=== PATIENT | female | born 1940 | race Caucasian/White ===

== ENCOUNTER → 2018-06-19 | Day surgery (SDC) | payer MEDICARE, OTHER ==
[~2018-06-19] MED LIST: Dextrose 5%-0.45% NaCl 1,000 ML IV SCH; Midazolam 1 MG/ML 2 ML SDV IV ONE; Midazolam 1 MG/ML 2 ML SDV ONE; Sodium Chloride 0.9% 250 ML IV SCH; fentaNYL 100 MCG/2 ML SDV IV ONE; fentaNYL 100 MCG/2 ML SDV ONE
[2018-06-19 13:33] VITALS: BP 122/62
--- NOTE | 2018-06-19 14:12 | OR ---
DATE: 06/19/2018 PREOPERATIVE DIAGNOSIS: Screening colonoscopy. POSTOPERATIVE DIAGNOSIS: Screening colonoscopy. PROCEDURE: Attempted colonoscopy. ANESTHESIA: Conscious sedation. SPECIMEN: None. INDICATION FOR PROCEDURE: This 78-year-old female is here for screening colonoscopy. OPERATIVE FINDINGS: I could not manipulate the scope through a fixed and tortuous sigmoid colon. I even changed scopes to a smaller pediatric version, and with enough sedation and manipulation, I still could not get past the sigmoid. It was felt getting dangerous, and I aborted the procedure. RECOMMENDATION: This patient is 78 and really does not have much of a cancer history. It depends on how strong you feel this needs to be screened, but the second option would be an air-contrast barium enema. PROCEDURE IN DETAIL: After adequate preparation, a colonoscope was inserted into the rectum. This was passed up into the lower part of the sigmoid. I could advance the scope through most of the sigmoid; however, I could easily see where a point of sigmoid was fixated into the pelvis, and this is probably secondary to adhesions from her hysterectomy. I positioned the patient in different ways and still was not able to advance the scope. I put the patient back in lateral position and changed to a smaller pediatric scope. I still ran across the same difficulty. The colon would not straighten out, and I could not get pass a fixed point in the colon. The patient was getting uncomfortable. I felt this was getting dangerous and aborted the case. [facility] /[id number]
== END ==
LOC: DL.ENDO 10:00
PROVIDERS: ATTEND Surgery
DX: Z12.11 Encounter for screening for malignant neoplasm of colon (principal); K63.89 Other specified diseases of intestine; E11.9 Type 2 diabetes mellitus without complications; Z79.899 Other long term (current) drug therapy; Z98.890 Other specified postprocedural states; Z88.8 Allergy status to other drugs, medicaments and biological substances
CPT/HCPCS: G0104; J2250; J3010; J7042; J7050

== ENCOUNTER 2022-07-04 12:50 | Emergency (ER) | payer MEDICARE, OTHER ==
[2022-07-04 13:07] VITALS: BP 188/68; PULSE 84
[2022-07-04 14:18] LABS: CORONAVIRUS COVID-19 NAA NEGATIVE (NEGATIVE); RESPIRATORY SYNCYTIAL VIR NAA NEGATIVE (NEGATIVE)
== END 2022-07-04 14:17 | disposition home or self-care (01) ==
LOC: DL.ED 12:50
DX: J15.7 Pneumonia due to Mycoplasma pneumoniae (principal); I10 Essential (primary) hypertension; K21.9 Gastro-esophageal reflux disease without esophagitis; E11.9 Type 2 diabetes mellitus without complications; Z88.8 Allergy status to other drugs, medicaments and biological substances; Z79.899 Other long term (current) drug therapy; Z20.822 Contact with and (suspected) exposure to COVID-19
CPT/HCPCS: 0241U; 71045; 99283; 99285

== ENCOUNTER 2024-06-30 16:42 | Inpatient (IN) | payer MEDICARE, OTHER ==
[2024-06-30] MEDS ORDERED: Sodium Chloride 0.9% 10 ML Syringe FLUSH PRN (16:51)
[2024-06-30 17:11] LABS: BASOPHILS PERCENT AUTO 0.1 % (0.0-1.0); EOSINOPHILS PERCENT AUTO 0.7 % (1.0-3.0); HEMATOCRIT 36.1 % (37.0-47.0); HEMOGLOBIN 11.8 g/dL (12.0-16.0); MEAN CORPUSCULAR HEMOGLOBIN 33.1 pg (27.0-34.0); MEAN CORPUSCULAR HGB CONC 32.7 g/dL (33.0-35.0); MEAN CORPUSCULAR VOLUME 101.1 fL (80-100); MONOCYTES PERCENT AUTO 12.7 % (2-8); NEUTROPHILS PERCENT AUTO 67.5 % (42.2-75.2); PLATELET COUNT,PLT 193 10^3/uL (150-450); RED BLOOD CELL COUNT 3.57 10^6/uL (4.2-5.4)
[2024-06-30] MEDS: Digoxin 500 MCG/2 ML Amp IVPUSH ONE (17:12)
[2024-06-30 17:39] LABS: ALBUMIN 3.2 g/dL (3.4-5.0); ANION GAP 14.6 mEq/L (7-13); BILIRUBIN TOTAL 1.6 mg/dL (0.2-1.0); BUN/CREATININE RATIO 18.2 (No establ ref range); C-REACTIVE PROTEIN 24.27 ng/dL (<=0.50); CALCIUM 9.3 mg/dL (8.5-10.1); CREATININE 1.81 mg/dL (0.55-1.02); EST CRCL DRUG DOSING (CG) 16.92 mL/min; MAGNESIUM 1.6 mg/dL (1.8-2.4); POTASSIUM,K 4.6 mmol/L (3.5-5.1); PROTEIN TOTAL,TP 7.8 g/dL (6.4-8.2)
[2024-06-30 17:44] LABS: A/G RATIO 0.7
[2024-06-30 17:46] LABS: LACTIC ACID 2.4 mmol/L (0.4-2.0)
[2024-06-30] MEDS: Magnesium Sulfate/Water Premix 2 GM in Premix Bag 1 BAG IV ONE (18:00)
[2024-06-30] MEDS: Sodium Chloride 0.9% 500 ML IV SCH (18:01)
[2024-06-30 18:05] LABS: APPEARANCE,URINE CLEAR (CLEAR); BILIRUBIN,URINE NEGATIVE (NEGATIVE); COLOR,URINE YELLOW (YELLOW); GLUCOSE,URINE NEGATIVE (NEGATIVE); KETONES,URINE NEGATIVE (NEGATIVE); LEUKOCYTE ESTERASE,URINE MODERATE (NEGATIVE); NITRITE,URINE POSITIVE (NEGATIVE); OCCULT BLOOD,URINE TRACE-INTACT (NEGATIVE); PH,URINE 5.5 (5.0-9.0); PROTEIN,URINE 30 (NEGATIVE)
[2024-06-30 18:16] LABS: AMORPHOUS SEDIMENT,URINE FEW /HPF (NOT SEEN); BACTERIA,URINE MANY /HPF (0-FEW/HPF); EPITHELIAL CELLS,URINE FEW /HPF (NOT SEEN); MUCUS,URINE FEW /LPF (NOT SEEN); RBC,URINE 0-5 /HPF (0-5); WBC,URINE 20-30 /HPF (0-5/HPF)
[2024-06-30] MEDS: cefTRIAXone 2 GM Vial IVPUSH ONE (18:23)
[2024-06-30] MEDS: Acetaminophen 500 MG Tab PO ONE (18:40)
[2024-06-30] MEDS ORDERED: Albuterol/Ipratropium 3.0-0.5 MG/3 ML Neb Soln NEB PRN (20:43)
[2024-06-30] MEDS ORDERED: Bisacodyl 5 MG Tab PO PRN (20:43)
[2024-06-30] MEDS ORDERED: Acetaminophen 325 MG Tab PO PRN (20:43)
[2024-06-30] MEDS ORDERED: DULoxetine 30 MG Cap PO SCH (21:00)
[2024-06-30] MEDS: Apixaban 5 MG Tab PO SCH (21:58)
[2024-06-30] MEDS: DULoxetine 30 MG Cap PO SCH (21:58)
[2024-06-30] MEDS: Docusate Sodium 100 MG Cap PO PRN (21:59)
[2024-06-30] MEDS: Melatonin 3 MG Tab PO PRN (21:59)
[2024-06-30] MEDS: Metoprolol Succinate 50 MG Tab.ER PO SCH (22:00)
[2024-06-30] MEDS: Sodium Chloride 0.9% 1,000 ML IV SCH (22:01)
[2024-07-01] MEDS: Levothyroxine 25 MCG Tab PO SCH (06:06)
[2024-07-01] MEDS: Ondansetron 4 MG/2 ML SDV IVPUSH PRN (06:35)
[2024-07-01 06:49] LABS: BASOPHILS PERCENT AUTO 0.1 % (0.0-1.0); EOSINOPHILS PERCENT AUTO 0.9 % (1.0-3.0); HEMATOCRIT 35.6 % (37.0-47.0); HEMOGLOBIN 11.4 g/dL (12.0-16.0); LYMPHOCYTES PERCENT AUTO 5.5 % (20.5-50.1); MEAN CORPUSCULAR HEMOGLOBIN 32.3 pg (27.0-34.0); MEAN CORPUSCULAR VOLUME 100.8 fL (80-100); MONOCYTES PERCENT AUTO 9.4 % (2-8); NEUTROPHILS PERCENT AUTO 84.1 % (42.2-75.2); PLATELET COUNT,PLT 185 10^3/uL (150-450); RED BLOOD CELL COUNT 3.53 10^6/uL (4.2-5.4); WHITE BLOOD CELL COUNT,WBC 11.4 10^3/uL (5.0-10.0)
[2024-07-01] MEDS: Digoxin 500 MCG/2 ML Amp IVPUSH ONE (07:10)
[2024-07-01 07:18] LABS: ANION GAP 15.1 mEq/L (7-13); C-REACTIVE PROTEIN 22.94 ng/dL (<=0.50); CALCIUM 9.2 mg/dL (8.5-10.1); CREATININE 1.85 mg/dL (0.55-1.02); EST CRCL DRUG DOSING (CG) 18.22 mL/min; POTASSIUM,K 5.1 mmol/L (3.5-5.1)
[2024-07-01] MEDS ORDERED: Spironolactone 25 MG Tab PO SCH (09:00)
[2024-07-01] MEDS: Digoxin 125 MCG Tab PO SCH (09:09)
[2024-07-01] MEDS: glipiZIDE 5 MG Tab PO SCH (09:37)
[2024-07-01 09:38] LABS: LACTIC ACID 1.2 mmol/L (0.4-2.0)
[2024-07-01] MEDS: atorvaSTATin 20 MG Tab PO SCH (09:39)
[2024-07-01] MEDS: Gabapentin 300 MG Cap PO SCH (15:50)
[2024-07-01] MEDS: cefTRIAXone 1 GM Vial IVPUSH SCH (20:02)
[2024-07-02 06:55] LABS: BASOPHILS PERCENT AUTO 0.1 % (0.0-1.0); EOSINOPHILS PERCENT AUTO 3.3 % (1.0-3.0); HEMATOCRIT 32.2 % (37.0-47.0); HEMOGLOBIN 10.5 g/dL (12.0-16.0); LYMPHOCYTES PERCENT AUTO 12.4 % (20.5-50.1); MEAN CORPUSCULAR HEMOGLOBIN 32.9 pg (27.0-34.0); MEAN CORPUSCULAR HGB CONC 32.6 g/dL (33.0-35.0); MEAN CORPUSCULAR VOLUME 100.9 fL (80-100); MONOCYTES PERCENT AUTO 12.8 % (2-8); NEUTROPHILS PERCENT AUTO 71.4 % (42.2-75.2); PLATELET COUNT,PLT 159 10^3/uL (150-450); RED BLOOD CELL COUNT 3.19 10^6/uL (4.2-5.4); WHITE BLOOD CELL COUNT,WBC 6.7 10^3/uL (5.0-10.0)
[2024-07-02 07:07] LABS: ANION GAP 12.4 mEq/L (7-13); C-REACTIVE PROTEIN 19.07 ng/dL (<=0.50); CALCIUM 9.1 mg/dL (8.5-10.1); CREATININE 1.47 mg/dL (0.55-1.02); EST CRCL DRUG DOSING (CG) 22.93 mL/min; POTASSIUM,K 4.4 mmol/L (3.5-5.1)
[2024-07-02 07:43] VITALS: BP 120/62; PULSE 60
[2024-07-02] MEDS: Allopurinol 100 MG Tab PO SCH (09:20)
== END 2024-07-02 12:58 | disposition home or self-care (01) | DRG 690 ==
LOC: DL.ED 16:42 → DL.MS 18:29
PROVIDERS: ADMIT Internal Medicine; ATTEND Internal Medicine
DX: N39.0 Urinary tract infection, site not specified (principal); I13.0 Hypertensive heart and chronic kidney disease with heart failure and stage 1 through stage 4 chronic kidney disease, or unspecified chronic kidney disease; I50.42 Chronic combined systolic (congestive) and diastolic (congestive) heart failure; N17.9 Acute kidney failure, unspecified; E86.1 Hypovolemia; I48.91 Unspecified atrial fibrillation; N18.30 Chronic kidney disease, stage 3 unspecified; E11.22 Type 2 diabetes mellitus with diabetic chronic kidney disease; F15.90 Other stimulant use, unspecified, uncomplicated; K21.9 Gastro-esophageal reflux disease without esophagitis; I08.1 Rheumatic disorders of both mitral and tricuspid valves; E86.0 Dehydration; T50.2X5A Adverse effect of carbonic-anhydrase inhibitors, benzothiadiazides and other diuretics, initial encounter; R63.4 Abnormal weight loss; Z68.28 Body mass index [BMI] 28.0-28.9, adult; Z86.73 Personal history of transient ischemic attack (TIA), and cerebral infarction without residual deficits; Z88.8 Allergy status to other drugs, medicaments and biological substances; Z79.1 Long term (current) use of non-steroidal anti-inflammatories (NSAID); Z79.51 Long term (current) use of inhaled steroids; Z79.899 Other long term (current) drug therapy; Z79.02 Long term (current) use of antithrombotics/antiplatelets; Z87.81 Personal history of (healed) traumatic fracture; Z98.890 Other specified postprocedural states; Z90.49 Acquired absence of other specified parts of digestive tract
CPT/HCPCS: 36415; 71045; 80048; 80053; 80162; 81001; 82947; 83605; 83735; 83880; 84484; 85025; 86140; 87040; 87086; 87428-QW; 93005; 93010; 96365; 96375; 97161-GP; 97165-GO; 99223; 99233; 99239; 99284; 99285-25; A9270-GY; J0696; J1160; J2405; J3475; J7030; J7040

== ENCOUNTER 2024-08-13 16:35 | Emergency (ER) | payer OTHER ==
[2024-08-13] MEDS: Sodium Chloride 0.9% 500 ML IV SCH (17:18)
[2024-08-13 17:24] LABS: BASOPHILS PERCENT AUTO 0.2 % (0.0-1.0); EOSINOPHILS PERCENT AUTO 1.9 % (1.0-3.0); HEMATOCRIT 36.2 % (37.0-47.0); HEMOGLOBIN 11.4 g/dL (12.0-16.0); LYMPHOCYTES PERCENT AUTO 30.4 % (20.5-50.1); MEAN CORPUSCULAR HEMOGLOBIN 32.4 pg (27.0-34.0); MEAN CORPUSCULAR HGB CONC 31.5 g/dL (33.0-35.0); MEAN CORPUSCULAR VOLUME 102.8 fL (80-100); MONOCYTES PERCENT AUTO 12.2 % (2-8); NEUTROPHILS PERCENT AUTO 55.3 % (42.2-75.2); PLATELET COUNT,PLT 109 10^3/uL (150-450); RED BLOOD CELL COUNT 3.52 10^6/uL (4.2-5.4); WHITE BLOOD CELL COUNT,WBC 6.2 10^3/uL (5.0-10.0)
[2024-08-13 17:52] LABS: A/G RATIO 0.9; ALANINE AMINOTRANSFERASE,ALT 19 U/L (14-59); ALBUMIN 3.5 g/dL (3.4-5.0); ALKALINE PHOSPHATASE 71 U/L (46-116); ANION GAP 12.6 mEq/L (7-13); ASPARTATE AMNIOTRANSFERASE,AST 20 U/L (15-37); BILIRUBIN DIRECT 0.4 mg/dL (0.0-0.2); BILIRUBIN INDIRECT 0.6; BLOOD UREA NITROGEN,BUN 17 mg/dL (7-18); CALCIUM 9.5 mg/dL (8.5-10.1); CARBON DIOXIDE,CO2 32 mmol/L (21-32); CHLORIDE,CL 102 mmol/L (98-107); CREATININE 1.49 mg/dL (0.55-1.02); GLUCOSE RANDOM 132 mg/dL (70-99); POTASSIUM,K 3.6 mmol/L (3.5-5.1); PROTEIN TOTAL,TP 7.4 g/dL (6.4-8.2); SODIUM,NA 143 mmol/L (136-145)
[2024-08-13 18:01] LABS: ESTIMATED GFR 35 mL/min (>=60)
[2024-08-13 18:15] LABS: INR 1.8 (0.9-1.2); PROTHROMBIN TIME 18.5 SEC (9.0-12.0)
[2024-08-13 19:01] LABS: APPEARANCE,URINE CLEAR (CLEAR); BILIRUBIN,URINE NEGATIVE (NEGATIVE); COLOR,URINE YELLOW (YELLOW); GLUCOSE,URINE NEGATIVE (NEGATIVE); KETONES,URINE NEGATIVE (NEGATIVE); LEUKOCYTE ESTERASE,URINE SMALL (NEGATIVE); NITRITE,URINE NEGATIVE (NEGATIVE); OCCULT BLOOD,URINE NEGATIVE (NEGATIVE); PROTEIN,URINE NEGATIVE (NEGATIVE); UROBILINOGEN,URINE 0.2 mg/dL (0.2-1.0)
[2024-08-13 19:12] LABS: BACTERIA,URINE MODERATE /HPF (0-FEW/HPF); EPITHELIAL CELLS,URINE MODERATE /HPF (NOT SEEN); RBC,URINE 0-5 /HPF (0-5); WBC,URINE 50-75 /HPF (0-5/HPF)
[2024-08-13 19:17] VITALS: BP 122/82; PULSE 93
== END 2024-08-13 19:00 | disposition home or self-care (01) ==
LOC: DL.ED 16:35
DX: R53.1 Weakness (principal); I10 Essential (primary) hypertension; I25.2 Old myocardial infarction; E78.00 Pure hypercholesterolemia, unspecified; E11.9 Type 2 diabetes mellitus without complications; I48.91 Unspecified atrial fibrillation; Z88.8 Allergy status to other drugs, medicaments and biological substances; Z79.01 Long term (current) use of anticoagulants; Z79.899 Other long term (current) drug therapy; Z79.890 Hormone replacement therapy; W19.XXXA Unspecified fall, initial encounter
CPT/HCPCS: 36415; 70450; 71045; 80048; 80076; 81001; 84484; 85025; 85610; 87040; 87086; 93005; 93010; 96360; 99284; 99285-25; J7030

== ENCOUNTER 2025-01-06 15:43 | Inpatient (IN) | payer OTHER ==
[2025-01-06] MEDS ORDERED: Sodium Chloride 0.9% 10 ML Syringe FLUSH PRN (15:51)
[2025-01-06 16:34] LABS: INR 5.0 (0.9-1.2)
[2025-01-06] MEDS ORDERED: 50% Dextrose in Water 50 ML Syringe IVPUSH PRN (16:38)
[2025-01-06 18:44] LABS: APPEARANCE,URINE CLEAR (CLEAR); GLUCOSE,URINE NEGATIVE (NEGATIVE); OCCULT BLOOD,URINE TRACE-INTACT (NEGATIVE)
[2025-01-06] MEDS: Sodium Chloride 0.9% 10 ML Syringe FLUSH SCH (21:18)
[2025-01-07 06:19] LABS: BASOPHILS PERCENT AUTO 0.5 % (0.0-1.0); EOSINOPHILS PERCENT AUTO 2.7 % (1.0-3.0); LYMPHOCYTES PERCENT AUTO 31.3 % (20.5-50.1); MONOCYTES PERCENT AUTO 13.1 % (2-8); NEUTROPHILS PERCENT AUTO 52.4 % (42.2-75.2); PLATELET COUNT,PLT 160 10^3/uL (150-450); RED BLOOD CELL COUNT 3.77 10^6/uL (4.2-5.4); WHITE BLOOD CELL COUNT,WBC 6.7 10^3/uL (5.0-10.0)
[2025-01-07 06:39] LABS: ALANINE AMINOTRANSFERASE,ALT 14.0 U/L (14-59); ASPARTATE AMNIOTRANSFERASE,AST 23.0 U/L (15-37); BILIRUBIN DIRECT 0.3 mg/dL (0.0-0.2); BILIRUBIN INDIRECT 0.4; BILIRUBIN TOTAL 0.7 mg/dL (0.2-1.0); BLOOD UREA NITROGEN,BUN 37.0 mg/dL (7-18); CARBON DIOXIDE,CO2 34.0 mmol/L (21-32); CHLORIDE,CL 105.0 mmol/L (98-107); CREATININE 1.46 mg/dL (0.55-1.02); EST CRCL DRUG DOSING (CG) 24.15 mL/min; GLUCOSE RANDOM 165.0 mg/dL (70-99); POTASSIUM,K 4.7 mmol/L (3.5-5.1); PROTEIN TOTAL,TP 6.4 g/dL (6.4-8.2); SODIUM,NA 142.0 mmol/L (136-145)
[2025-01-07 06:40] LABS: A/G RATIO 0.94; ESTIMATED GFR 36.0 mL/min (>=60); INR 1.5 (0.9-1.2)
[2025-01-07] MEDS: glipiZIDE 2.5 MG Tab.ER PO SCH (08:20)
[2025-01-07 13:14] VITALS: BP 108/46; PULSE 68
== END 2025-01-07 14:25 | disposition home or self-care (01) | DRG 683 ==
LOC: UNDOADMIN 15:43 → DL.MS 15:43
PROVIDERS: ADMIT Internal Medicine; ATTEND Internal Medicine
DX: N17.9 Acute kidney failure, unspecified (principal); D68.69 Other thrombophilia; I13.0 Hypertensive heart and chronic kidney disease with heart failure and stage 1 through stage 4 chronic kidney disease, or unspecified chronic kidney disease; I50.42 Chronic combined systolic (congestive) and diastolic (congestive) heart failure; N39.0 Urinary tract infection, site not specified; E86.0 Dehydration; F32.A Depression, unspecified; E03.9 Hypothyroidism, unspecified; G89.29 Other chronic pain; K21.9 Gastro-esophageal reflux disease without esophagitis; E11.22 Type 2 diabetes mellitus with diabetic chronic kidney disease; E11.40 Type 2 diabetes mellitus with diabetic neuropathy, unspecified; I48.91 Unspecified atrial fibrillation; E78.00 Pure hypercholesterolemia, unspecified; I49.3 Ventricular premature depolarization; K59.09 Other constipation; F41.9 Anxiety disorder, unspecified; N18.32 Chronic kidney disease, stage 3b; I34.0 Nonrheumatic mitral (valve) insufficiency; M48.061 Spinal stenosis, lumbar region without neurogenic claudication; M10.9 Gout, unspecified; M81.0 Age-related osteoporosis without current pathological fracture; Z88.8 Allergy status to other drugs, medicaments and biological substances; Z90.49 Acquired absence of other specified parts of digestive tract; Z79.01 Long term (current) use of anticoagulants; Z86.73 Personal history of transient ischemic attack (TIA), and cerebral infarction without residual deficits; I25.2 Old myocardial infarction; Z86.0100 Personal history of colon polyps, unspecified; Z79.899 Other long term (current) drug therapy; Z79.890 Hormone replacement therapy; Z79.84 Long term (current) use of oral hypoglycemic drugs
CPT/HCPCS: 36415; 80048; 80076; 80162; 81003; 82947; 83735; 85025; 85610; 99223; 99239; A9270-GY; J1815-GY; J3430; J7030

== ENCOUNTER 2025-01-31 16:17 | Emergency (ER) | payer OTHER ==
[2025-01-31 16:52] LABS: BASOPHILS PERCENT AUTO 0.2 % (0.0-1.0); EOSINOPHILS PERCENT AUTO 1.3 % (1.0-3.0); LYMPHOCYTES PERCENT AUTO 16.5 % (20.5-50.1); MONOCYTES PERCENT AUTO 10.9 % (2-8); NEUTROPHILS PERCENT AUTO 71.1 % (42.2-75.2); PLATELET COUNT,PLT 135 10^3/uL (150-450); RED BLOOD CELL COUNT 3.34 10^6/uL (4.2-5.4); WHITE BLOOD CELL COUNT,WBC 8.2 10^3/uL (5.0-10.0)
[2025-01-31 17:16] LABS: ALANINE AMINOTRANSFERASE,ALT 29.0 U/L (14-59); ASPARTATE AMNIOTRANSFERASE,AST 42.0 U/L (15-37); BILIRUBIN DIRECT 0.3 mg/dL (0.0-0.2); BILIRUBIN INDIRECT 0.3; BILIRUBIN TOTAL 0.6 mg/dL (0.2-1.0); BLOOD UREA NITROGEN,BUN 41.0 mg/dL (7-18); CARBON DIOXIDE,CO2 30.0 mmol/L (21-32); CHLORIDE,CL 100.0 mmol/L (98-107); CREATININE 1.54 mg/dL (0.55-1.02); EST CRCL DRUG DOSING (CG) 22.49 mL/min; GLUCOSE RANDOM 176.0 mg/dL (70-99); POTASSIUM,K 4.6 mmol/L (3.5-5.1); PROTEIN TOTAL,TP 6.7 g/dL (6.4-8.2); SODIUM,NA 137.0 mmol/L (136-145)
[2025-01-31 17:18] LABS: A/G RATIO 0.86; ESTIMATED GFR 33.0 mL/min (>=60)
[2025-01-31 18:06] LABS: APPEARANCE,URINE SLIGHTLY CLOUDY (CLEAR); GLUCOSE,URINE NEGATIVE (NEGATIVE); OCCULT BLOOD,URINE TRACE-INTACT (NEGATIVE)
[2025-01-31 18:14] LABS: EPITHELIAL CELLS,URINE MODERATE /HPF (NOT SEEN)
[2025-01-31 18:59] VITALS: BP 98/86; PULSE 76
== END 2025-01-31 19:12 | disposition home or self-care (01) ==
LOC: DL.ED 16:17
DX: S09.90XA Unspecified injury of head, initial encounter (principal); R53.1 Weakness; I48.91 Unspecified atrial fibrillation; I10 Essential (primary) hypertension; I25.2 Old myocardial infarction; E11.9 Type 2 diabetes mellitus without complications; K21.9 Gastro-esophageal reflux disease without esophagitis; Z90.49 Acquired absence of other specified parts of digestive tract; Z79.899 Other long term (current) drug therapy; Z79.84 Long term (current) use of oral hypoglycemic drugs; Z88.8 Allergy status to other drugs, medicaments and biological substances; Z79.02 Long term (current) use of antithrombotics/antiplatelets; Z79.01 Long term (current) use of anticoagulants; W01.0XXA Fall on same level from slipping, tripping and stumbling without subsequent striking against object, initial encounter
CPT/HCPCS: 36415; 70450; 71045; 72125; 80048; 80076; 81001; 84484; 85025; 87040; 93005; 93010; 99284; 99285; A9270-GY